=== PATIENT | male | born 1935 | race African-American/Black ===

== ENCOUNTER 2017-11-01 10:27 | Emergency (ER) | payer OTHER ==
[~2017-11-01] VITALS: Ht 177.8 cm; Wt 90.0 kg
[~2017-11-01 10:27] MED LIST: LEVO75TA7 PO; LISI40TA4 PO; TERA10CA4 PO
[2017-11-01] MEDS ORDERED: TETANUS, DIPHTHERIA, PERTUSSIS VAC/PF 0.5ML (>7YR OLD) IM ONE (12:45)
[2017-11-01] MEDS ORDERED: BACITRACIN ZINC OINT UDPKT TOP ONE (12:45)
[2017-11-01 13:30] VITALS: BP 142/75
== END 2017-11-01 14:07 | disposition home or self-care (01) ==
LOC: ER 13:27
DX: S52.592A Other fractures of lower end of left radius, initial encounter for closed fracture (principal); S61.213A Laceration without foreign body of left middle finger without damage to nail, initial encounter; I10 Essential (primary) hypertension; Z98.890 Other specified postprocedural states; W23.1XXA Caught, crushed, jammed, or pinched between stationary objects, initial encounter; Y93.89 Activity, other specified; Y92.89 Other specified places as the place of occurrence of the external cause; Y99.8 Other external cause status
CPT/HCPCS: 12001; 73130; 90471; 90715; 99284